=== PATIENT | male | born 1940 | race Caucasian/White ===

== ENCOUNTER → 2017-07-31 | Outpatient (REF) | payer MEDICARE, OTHER ==
[~2017-07-31] MED LIST: ALFU10TA28 PO; ALPR-448 PO; ALPR-460 PO; CHOL10005 PO; CHOL400C PO; DUTA0.5C14 PO; VITA1CAP46 PO
== END ==
LOC: ZZSENDIN 18:00
PROVIDERS: ATTEND Physician Assistant Medical
DX: N39.0 Urinary tract infection, site not specified (principal); R82.99 Other abnormal findings in urine
CPT/HCPCS: 87088

== ENCOUNTER → 2017-09-06 | Outpatient (CLI) | payer MEDICARE, OTHER ==
[~2017-09-06] MED LIST changes: +ALPH200T3 PO; +BILB100C2 PO; +CALC500T6 PO; +FOLI0.4T56 PO; +KRIL1CAP6 PO; +LEVO25PO MC; +MAGN100T PO; +TRAM-420 PO; +UBID30CA27 PO
== END ==
LOC: LAB 09:39
PROVIDERS: ATTEND Urology
DX: Z01.812 Encounter for preprocedural laboratory examination (principal); R33.9 Retention of urine, unspecified; Z87.440 Personal history of urinary (tract) infections; B96.89 Other specified bacterial agents as the cause of diseases classified elsewhere
CPT/HCPCS: 81001; 87088

== ENCOUNTER 2017-09-10 00:22 | Inpatient (IN) | payer MEDICARE, OTHER ==
--- NOTE | 2017-08-30 12:37 | RADIOLOGY IMAGING REPORT ---
FACILITY: [facility] - [place] PATIENT NAME: Zay Fuentes : 1940 MR: [id number] V: [id number] EXAM DATE: ORDERING PHYSICIAN: YADI ARAGON TECHNOLOGIST: Location: [facility] - [place] Patient: Zay Fuentes : 1940 Visit/Account:[id number] Date of Sevice: 08/30/2017 2 VIEWS CHEST INDICATION: Cough. Preop evaluation. COMPARISON: 06/12/2017. FINDINGS: Cardiomediastinal silhouette and pulmonary vessels within normal limits. There is no focal infiltrate or lobar consolidation. There is no pneumothorax or pleural effusion. No nodule. Upper abdomen is unremarkable. No acute bony abnormality. IMPRESSION: 1. No acute cardiopulmonary process. Report Dictated By: Waqas Romo at 08/30/2017 12:15 PM Report E-Signed By: Waqas Romo at 08/30/2017 12:33 PM WSN:[id number]
[2017-09-09 16:01] LABS: INR 1.02
[~2017-09-10] VITALS: Ht 175.3 cm; Wt 59.4 kg
[2017-09-10] VITALS (16 sets, daily range): BP systolic 91–115; BP diastolic 41–68
--- NOTE | 2017-09-10 04:47 | HISTORY AND PHYSICAL ---
DATE OF ADMISSION: September 10, 2017 IDENTIFICATION, CHIEF COMPLAINT The patient is a 76-year-old gentleman with chief complaint of right hip pain. HISTORY OF PRESENT ILLNESS Patient has a longstanding history of arthritis, progressively painful and debilitating, refractory to conservative care. Surgery is indicated to relieve symptoms after failure of nonoperative measures. PAST MEDICAL HISTORY Notable for an irregular heartbeat, sleep apnea, BPH and back problems. PAST SURGICAL HISTORY Notable for urethral dilation and tonsillectomy. CURRENT MEDICATIONS 1. Alfuzosin 10 mg p.o. q.day. 2. Dutasteride 0.5 mg p.o. q.day. 3. Tramadol 50 mg as needed. 4. Various vitamins. ALLERGIES PENICILLIN and AMOXICILLIN, which cause a rash. SULFA DRUGS that causes rash and throat tightness. SOCIAL HISTORY Negative for tobacco use. Drinks alcohol socially, denies abuse. REVIEW OF SYSTEMS Negative. FAMILY HISTORY Negative. PHYSICAL EXAMINATION GENERAL: This is a well-developed, well-nourished male who appears stated age. HEENT: Normocephalic, atraumatic. NECK: Supple. LUNGS: Clear. HEART: Regular. ABDOMEN: Soft. ORTHOPEDIC EXAM: The right hip is stiff at the end range of motion. He has pain with combined flexion and rotation. Skin envelope is intact. Neurovascular function is intact. Motor function is normal. RADIOGRAPHIC DATA Radiographs demonstrate advanced hip arthritis. ASSESSMENT Right hip degenerative joint disease, progressively painful and debilitating, refractory to conservative care. PLAN Per patient request, we are going to proceed with total hip arthroplasty. Nature of this procedure, risks, benefits, the anticipated rehab course are reviewed. Risks include, but are not limited to, , major medical or anesthetic complication, infection, neurovascular injury, blood transfusion, fracture, tendon rupture, leg length discrepancy, persistent or recurrent pain , need for additional operation, and other unforeseen. He understands and wishes to proceed. Signed permit was placed in the chart, no guarantees given or implied. HILDA
[2017-09-10] MEDS ORDERED: NORMOSOL R SOLN(*) 1000 ML BAG 1,000 ML IV PRN ×2 (09:15→12:20)
[2017-09-10] MEDS ORDERED: TRANEXAMIC AC 1000 MG/10ML SDV 1,000 MG in DEXTROSE 5% 50 ML BAG 50 ML IV ONE (09:15)
[2017-09-10] MEDS ORDERED: VANCOMYCIN 1 GM ADDVIAL 1 GM in NS(*) 0.9% 250 ML ADDVAN BAG 250 ML IVPB ONE (09:15)
[2017-09-10] MEDS ORDERED: cloNIDine EPIDUR INJ 100MCG/ML 40 MCG, ROPIVACAINE 0.5% 20 ML VIAL 25 ML, EPINEPHrine H... INJ ONE (09:15)
[2017-09-10] MEDS ORDERED: LIDOCAINE/SOD BICARB 8.4% SYR ID ONE (09:15)
[2017-09-10] MEDS ORDERED: FAMOTIDINE 20 MG TAB PO ONE (09:15)
[2017-09-10] MEDS ORDERED: CLINDAMYCIN(*) 900 MG/NS 50 ML 50 ML IVPB ONE (09:15)
[2017-09-10] MEDS: MIDAZOLAM 2 MG/2 ML VIAL IVP ONE ×2 (09:30→09:47)
[2017-09-10] MEDS ORDERED: LIDOCAINE MPF 1% 5 ML VIAL ONE (09:35)
[2017-09-10] MEDS ORDERED: ONDANSETRON 4 MG/2 ML VIAL ONE (09:35)
[2017-09-10] MEDS ORDERED: PROPOFOL EMUL(*) 10MG/ML 20 ML 40 ML ONE (09:35)
[2017-09-10] MEDS ORDERED: DEXAMETHASONE SOD PHOS 10MG/ML ONE (09:35)
[2017-09-10] MEDS ORDERED: MORPHINE PF 5 MG/10 ML AMP ONE (09:36)
[2017-09-10] MEDS ORDERED: SUCCINYLCHOL CHL 100MG/5ML SYR IVP ONE (10:00)
[2017-09-10] MEDS ORDERED: PHENYLEPHRINE/NS/PF 0.4MG/10ML ONE (11:23)
[2017-09-10] MEDS ORDERED: ACETAMINOPHEN 325 MG TAB PO PRN (12:20)
[2017-09-10] MEDS ORDERED: BISACODYL 10 MG SUPP PR PRN (12:20)
[2017-09-10] MEDS ORDERED: diphenhydrAMINE 25 MG CAP PO PRN (12:20)
[2017-09-10] MEDS ORDERED: MAGNESIUM HYDROXIDE* 30ML UDCP PO PRN (12:20)
[2017-09-10] MEDS ORDERED: diphenhydrAMINE 50 MG/ML VIAL IVP PRN (12:20)
[2017-09-10] MEDS ORDERED: PROMETHAZINE 25 MG/ML 1 ML AMP IVP PRN (12:20)
[2017-09-10] MEDS ORDERED: ZOLPIDEM TARTRATE 5 MG TAB PO PRN (12:20)
[2017-09-10] MEDS ORDERED: BENZOCAINE/MENTHOL 1 EACH LOZG PO PRN (12:20)
[2017-09-10] MEDS ORDERED: DIAZEPAM 5 MG TAB PO PRN (12:20)
[2017-09-10] MEDS ORDERED: FLUSH 10 ML SYR IVP PRN (12:20)
[2017-09-10] MEDS ORDERED: NALOXONE HCL 0.4 MG/ML VIAL IVP PRN (12:30)
[2017-09-10] MEDS ORDERED: ONDANSETRON 4 MG/2 ML VIAL IVP PRN (12:30)
[2017-09-10] MEDS ORDERED: fentaNYL CITR 250 MCG/5 ML AMP ONE (13:01)
--- NOTE | 2017-09-10 13:36 | RADIOLOGY IMAGING REPORT ---
FACILITY: [facility] - [place] PATIENT NAME: Zay Fuentes : 1940 MR: [id number] V: [id number] EXAM DATE: ORDERING PHYSICIAN: YADI ARAGON TECHNOLOGIST: Location: [facility] - [place] Patient: Zay Fuentes : 1940 Visit/Account:[id number] Date of Sevice: 09/10/2017 Exam type: PELVIS History: POST OP HIP PLACEMENT Comparison: None. Findings: There is a right hip arthroplasty that appears in good anatomic alignment on this AP view. Soft tiss ue gas projects over the right hip on this postoperative study. Skin kennedy project lateral to the right hip. Soft tissue gas also noted projecting over the right inguinal region. This could be simp ly postoperative although the differential diagnosis would include a right inguinal hernia. Catheter projects over the midline of the lower pelvis. There are severe arthritic changes of the left hip j oint IMPRESSION: 1. Right hip arthroplasty appears in good anatomic alignment on this AP view Soft tissue gas over the right inguinal region could be simply postoperative in nature although diffe rential diagnosis would include a right inguinal hernia Report Dictated By: Rachel Infante MD at 09/10/2017 1:31 PM Report E-Signed By: Rachel Infante MD at 09/10/2017 1:32 PM WSN:[email or web address]
--- NOTE | 2017-09-10 16:34 | Hospitalist Progress Note ---
Subjective Progress Notes Subjective Patient admitted after right hip replacement. Patient reports he is doing well at this time. Patient's medical history and medications were reviewed. Patient had estimated blood loss of 100cc. Patient had no obvious complications from surgery. Patient Complains of: Cardiovascular: No: Chest Pain Respiratory: No: Shortness of Breath Physical Exam Vital Signs Date Time Temp Pulse Resp B/P (MAP) Pulse Ox O2 Delivery O2 Flow Rate FiO2 09/10/17 15:30 71 12 111/46 (67) 92 Nasal Cannula 1.0 09/10/17 13:57 97.5 Intake and Output 09/11/17 07:00 Intake Total 2450 ml Output Total 1575 ml Balance 875 ml Intake IV Total 2450 ml Output Urine Total 1575 ml Emesis 0 ml # Bowel Movements 0 General Appearance: Alert, Awake, No Acute Distress, Afebrile Cardiovascular: Regular Rate and Rhythm Respiratory: No Respiratory Distress, Clear to Auscultation Extremities: Warm, No Edema Psych: Alert & Oriented X3, Appropriate Mood & Affect Assessment and Plan Problems: (1) Status post hip replacement Status: Acute Assessment & Plan: Patient had no obvious complications from surgery. He will be started on Aspirin 325mg daily for DVT prophylaxis. (2) BPH (benign prostatic hyperplasia) Status: Chronic Assessment & Plan: He is on chronic treatment with alfuzosin and dutasteride. Time Spent on Plan of Care: < 30 min Exam Sepsis Risk: No Definite Risk Problem Qualifiers (1) Status post hip replacement: Laterality: right Qualified Codes: Z96.641 - Presence of right artificial hip joint GERRI LADD Sep 10, 2017 16:34
[2017-09-10] MEDS: IBUPROFEN 800 MG TAB PO SCH (17:47)
--- NOTE | 2017-09-10 19:22 | OPERATIVE REPORT 1 ---
EVENT DATE: September 10, 2017 SURGEON: Roman Remy MD ANESTHESIOLOGIST: Ricky Carmona MD ANESTHESIA: General plus spinal. GREETING CARD MAKER: Durga Hargrove PA-C PREOPERATIVE DIAGNOSIS Right hip degenerative joint disease. POSTOPERATIVE DIAGNOSIS Right hip degenerative joint disease. PROCEDURE PERFORMED Right total hip arthroplasty. ESTIMATED BLOOD LOSS Minimal. DRAINS None. SPECIMENS None. COMPLICATIONS None apparent. IMPLANTS USED [place]oke system Secur-Fit 132 size 9 stem, a 36 mm, +2.5 Biolox head, a 52 mm PSL raised rim shell with an X3 polyethylene liner to accommodate the 36 mm head , zero-degree. INDICATIONS Ed has intractable pain and disability related to end-stage hip arthritis. Surgery is indicated to improve pain and function after failure of nonoperative measures. DESCRIPTION OF PROCEDURE The patient was taken to the operating room and placed supine on the operating table. General anesthesia was induced after a spinal block was administered by the anesthesiologist. Antibiotics and TXA were administered IV. He was placed in the left lateral decubitus on a well-padded pegboard. His pelvis was secured in the vertical position. All bony prominences and superficial nerves were well padded. The right hip, groin, and lower extremity were prepped and draped in the usual sterile fashion for hip surgery. A small incision for posterolateral approach was made and carried down through the skin and subcutaneous tissue to the deep fascia. The fascia was incised over the tip of the trochanter and extended distally in line with the femur and proximally in line with the lb fibers. The lb fibers were split bluntly. The trochanteric bursa was excised. The interval between the abductor and external rotator was identified. The abductor mechanism was protected with a blunt Hohmann. An L capsulotomy/tenotomy was performed with the horizontal limb just above the piriformis. The capsule and external rotators were peeled off the posterior aspect of the femur and tagged with #2 Vicryl for later reattachment. The femoral head was dislocated. A 1.5 cm neck cut was made consistent with preoperative templating, and the femoral head was extracted. The femur was translocated anteriorly. Periacetabular retractors were placed with the tips down in on bone. The labrum was pulled and was excised. A 44 mm reamer was used to medialize to the true medial wall of the acetabulum. It was expanded in 2 mm increments up to 52 where nice rim contact was obtained. The 52 trial had nice fit. The 53 was used to open the mouth of the acetabulum to accommodate the raised rim liner. The surface was copiously lavaged. The actual shell was impacted in approximately 40 degrees of lateral opening and 15 degrees of anteversion using the extracorporeal guide, internal bony landmarks, and transverse acetabular ligament to guide socket placement. Rock solid fixation was achieved. No adjuvant fixation was felt to be needed. The liner was impacted into the shell after this was lavaged and dried. Attention was turned to femoral preparation. Superior neck was resected with a [employer] [place] cutter. A [place] awl found the canal. Tapered reaming was taken up to 9 where good endosteal contact was obtained. Broaching started at 7 and worked up to 9, taking care to lateralize and follow the [place] version of the calcar at about 15 degrees. The 9 broach had nice fit and fill and stability. Trial reduction was performed off this. Good temple of limb length and stability was achievable. The broach was extracted, and the actual stem was impacted. It seated at the same height. The +2.5 seemed optimal for temple of limb length, soft tissue tension, and stability. The Schaffer taper was lavaged and dried, and the actual Biolox head was impacted into position. The joint was reduced. Arthrotomy/tenotomy was closed with drill holes through the posterolateral femur. A pain cocktail was infiltrated throughout the wound. The deep fascia was closed distally with #2 Ethibond and proximally with #2 Vicryl. The subcutaneous tissue was lavaged. Hemostasis was assured. The dermis was closed with 3-0 Vicryl and the skin with surgical kennedy. Xeroform and 4 x 4's dry, sterile dressing and a hip wrap were applied. The patient was rolled supine. An abduction pillow was placed. He was awakened from anesthesia and taken to the recovery room in stable condition having tolerated the procedure well. PLAN The plan is for standard [facility] rehab protocol, weightbearing as tolerated, and posterior precautions. [facility]
[2017-09-10] MEDS ORDERED: VANCOMYCIN ADDVAN 1 GM in NS 250 ML IVPB SCH (22:00)
[2017-09-11] MEDS: IBUPROFEN 800 MG TAB PO SCH ×3 (00:51→17:31)
[2017-09-11 03:56] VITALS: BP 98/47
[2017-09-11] MEDS: CLINDAMYCIN(*) 900 MG/NS 50 ML 50 ML IVPB SCH ×3 (05:27→22:05)
[2017-09-11 07:55] VITALS: BP 91/52
[2017-09-11] MEDS: APAP/HYDROCODONE 325/7.5 TAB PO PRN ×3 (08:04→22:31)
[2017-09-11] MEDS: ASPIRIN 325 MG TAB PO SCH (08:48)
[2017-09-11] MEDS: ALFUZOSIN HCL 10 MG TABCR PO SCH (08:48)
[2017-09-11] MEDS: DUTASTERIDE 0.5 MG CAP PO SCH (08:48)
--- NOTE | 2017-09-11 09:02 | Hospitalist Progress Note ---
Subjective Progress Notes Subjective Patient had no complaints this morning. No acute events overnight. Patient Complains of: Cardiovascular: No: Chest Pain Respiratory: No: Shortness of Breath Physical Exam Vital Signs Date Time Temp Pulse Resp B/P (MAP) Pulse Ox O2 Delivery O2 Flow Rate FiO2 09/11/17 07:59 93 Room Air 09/11/17 07:55 97.8 59 16 91/52 (65) 1.0 General Appearance: Alert, Awake, No Acute Distress, Afebrile Cardiovascular: Regular Rate and Rhythm Respiratory: No Respiratory Distress, Clear to Auscultation Extremities: No Edema Psych: Alert & Oriented X3, Appropriate Mood & Affect Assessment and Plan Problems: (1) Status post hip replacement Status: Acute Assessment & Plan: He will continue Aspirin 325mg daily for 30 days for DVT prophylaxis. (2) BPH (benign prostatic hyperplasia) Status: Chronic Assessment & Plan: He is on chronic treatment with alfuzosin and dutasteride. Exam Sepsis Risk: No Definite Risk Problem Qualifiers (1) Status post hip replacement: Laterality: right Qualified Codes: Z96.641 - Presence of right artificial hip joint GERRI LADDP Sep 11, 2017 09:02
[2017-09-11 12:15] VITALS: BP 91/48
[2017-09-11 12:23] VITALS: Ht 175.3 cm; Wt 59.4 kg
[2017-09-11 17:28] VITALS: BP 86/47
[2017-09-11] MEDS ORDERED: IV BOLUS 500 ML IVSOL IV ONE (17:50)
[2017-09-11] MEDS ORDERED: NS(*) 0.9% 250 ML BAG 250 ML ONE (18:06)
[2017-09-11 20:04] VITALS: BP_SYST 86; BP_SYST 93; BP_DIAS 45; BP_DIAS 47
[2017-09-11] MEDS ORDERED: NS(*) 0.9% 1000 ML BAG 1,000 ML IV PRN (21:20)
[2017-09-11 22:32] VITALS: BP 131/65
[2017-09-12] MEDS: IBUPROFEN 800 MG TAB PO SCH ×2 (00:36→09:24)
[2017-09-12 04:02] VITALS: BP 120/56
[2017-09-12 06:22] LABS: PLATELET COUNT, AUTOMATED 173 K/uL (150-450)
[2017-09-12] MEDS: APAP/HYDROCODONE 325/7.5 TAB PO PRN ×2 (07:21→12:44)
[2017-09-12] MEDS ORDERED: HYDR-4308 PO (07:54)
[2017-09-12 08:08] VITALS: BP 125/72
--- NOTE | 2017-09-12 09:07 | Hospitalist Progress Note ---
Subjective Progress Notes Subjective Patient has no complaints this morning. He states he is ready to go home. Patient Complains of: Cardiovascular: No: Chest Pain Respiratory: No: Shortness of Breath Physical Exam Vital Signs Date Time Temp Pulse Resp B/P (MAP) Pulse Ox O2 Delivery O2 Flow Rate FiO2 09/12/17 08:08 98.3 89 16 125/72 (89) 94 Nasal Cannula 0.5 Intake and Output 09/13/17 07:00 Intake Total 800 ml Balance 800 ml Intake Oral 800 ml General Appearance: Alert, Awake, No Acute Distress, Afebrile Cardiovascular: Regular Rate and Rhythm Respiratory: No Respiratory Distress, Clear to Auscultation Psych: Alert & Oriented X3, Appropriate Mood & Affect Result Diagram: 09/12/17 0602 09/12/17 06 Assessment and Plan Problems: (1) Status post hip replacement Status: Acute Assessment & Plan: He will continue Aspirin 325mg daily for 30 days for DVT prophylaxis. (2) BPH (benign prostatic hyperplasia) Status: Chronic Assessment & Plan: He is on chronic treatment with alfuzosin and dutasteride. Exam Sepsis Risk: No Definite Risk Problem Qualifiers (1) Status post hip replacement: Laterality: right Qualified Codes: Z96.641 - Presence of right artificial hip joint GERRI LADD Sep 12, 2017 09:07
[2017-09-12] MEDS ORDERED: ASPI-757 PO (09:13)
[2017-09-12] MEDS: ASPIRIN 325 MG TAB PO SCH (09:24)
[2017-09-12] MEDS: ALFUZOSIN HCL 10 MG TABCR PO SCH (09:24)
[2017-09-12] MEDS: DUTASTERIDE 0.5 MG CAP PO SCH (09:24)
== END 2017-09-12 13:40 | disposition home or self-care (01) | DRG 470 ==
LOC: OR 00:22 → MED 13:55
PROVIDERS: ADMIT Orthopaedic Surgery; ATTEND Orthopaedic Surgery
PROC: 0SR904A Replacement of Right Hip Joint with Ceramic on Polyethylene Synthetic Substitute, Uncemented, Open Approach (ICD-10-PCS; principal; 2017-09-10 09:51)
DX: M16.11 Unilateral primary osteoarthritis, right hip (principal); N40.0 Benign prostatic hyperplasia without lower urinary tract symptoms; G47.30 Sleep apnea, unspecified; Z88.0 Allergy status to penicillin; Z88.2 Allergy status to sulfonamides
CPT/HCPCS: 36415; 71046; 72170; 82310; 82374; 82435; 82565; 82947; 84132; 84295; 84520; 85025; 85610; 86850; 86900; 86901; 97161; 97165; C1776; J0171; J0330; J0735; J1100; J1885; J2001; J2250; J2270; J2370; J2405; J2704; J2795; J3010; J3370; J3490; J7030; J7050; J7060

== ENCOUNTER 2017-10-22 00:28 | Inpatient (IN) | payer MEDICARE, OTHER ==
[2017-10-21 15:02] LABS: INR 1.02
[2017-10-22] VITALS (13 sets, daily range): BP systolic 90–113; BP diastolic 43–75
[~2017-10-22] VITALS: Ht 177.8 cm; Wt 59.0 kg
[~2017-10-22 00:28] MED LIST changes: +ASPI-757 PO; +HYDR-4308 PO
--- NOTE | 2017-10-22 10:40 | HISTORY AND PHYSICAL ---
DATE OF ADMISSION: October 22, 2017 IDENTIFICATION, CHIEF COMPLAINT Ed is a 76-year-old gentleman with a chief complaint of left hip pain. HISTORY OF PRESENT ILLNESS Patient has a history of arthritis of both of his hips. He is recovering successfully after recent right hip replacement. Left hip replacement is indicated at this time to relieve pain and improve function after failure of nonoperative measures. PAST MEDICAL HISTORY Notable for irregular heartbeat, sleep apnea, benign prostatic hypertrophy, low back problems. PAST SURGICAL HISTORY Notable for the above-noted contralateral hip replacement, tonsillectomy and urethral dilation. ALLERGIES PENICILLIN and AMOXICILLIN, which lead to rash. SULFA, which causes rash and throat tightness, and possibly CLINDAMYCIN, also leading to a rash. FAMILY HISTORY Noncontributory. SOCIAL HISTORY Negative for tobacco use. He drinks alcohol, 2-3 beverages per week, denies abuse. REVIEW OF SYSTEMS Noncontributory. PHYSICAL EXAMINATION GENERAL: This is a well-developed, well-nourished male, who appears his stated age. HEENT: Normocephalic, atraumatic. NECK: Supple. LUNGS: Clear. HEART: Regular. ABDOMEN: Soft. ORTHOPEDIC EXAM: The left hip is painful with limited rotation. His limb is shorter about 1 cm by gross clinical measurement. Skin is intact. Neurovascular function is intact. Hip girdle strength is grossly normal. RADIOGRAPHIC DATA Radiographs demonstrate end-stage DJD of the hip. ASSESSMENT Left hip end-stage degenerative joint disease, progressively painful and debilitating, refractory to conservative care. PLAN Per patient request, will proceed with total hip arthroplasty. Nature of the procedure, risks, benefits, the anticipated rehabilitative course were reviewed. Risks include, but are not limited to, , major medical or anesthetic complication, infection, neurovascular injury, blood transfusion, stiffness, scarring, fracture, tendon rupture, instability, leg length discrepancy, implant loosening, migration or failure, persistent or recurrent pain, need for additional surgery, and other unforeseen. He understands and wishes to proceed. Signed permit was placed in the chart, no guarantees given or implied. [facility]
[2017-10-22] MEDS ORDERED: FAMOTIDINE 20 MG TAB PO ONE (12:15)
[2017-10-22] MEDS ORDERED: LIDOCAINE/SOD BICARB 8.4% SYR ID ONE (12:15)
[2017-10-22] MEDS ORDERED: TRANEXAMIC AC 1000 MG/10ML SDV 1,000 MG in DEXTROSE 5% 50 ML BAG 50 ML IV ONE (12:15)
[2017-10-22] MEDS ORDERED: NORMOSOL R SOLN(*) 1000 ML BAG 1,000 ML IV PRN ×2 (12:15→15:55)
[2017-10-22] MEDS ORDERED: MIDAZOLAM 2 MG/2 ML VIAL IVP PRN (12:15)
[2017-10-22] MEDS ORDERED: VANCOMYCIN 1 GM ADDVIAL 1 GM in NS(*) 0.9% 250 ML ADDVAN BAG 250 ML IVPB ONE (12:15)
[2017-10-22] MEDS ORDERED: cloNIDine EPIDUR INJ 100MCG/ML 40 MCG, ROPIVACAINE 0.5% 20 ML VIAL 25 ML, EPINEPHrine H... INJ ONE (12:15)
[2017-10-22] MEDS ORDERED: DEXAMETHASONE SOD PHOS 10MG/ML ONE (15:01)
[2017-10-22] MEDS ORDERED: PROPOFOL EMUL(*) 10MG/ML 20 ML 40 ML ONE (15:01)
[2017-10-22] MEDS ORDERED: SUCCINYLCHOL CHL 200MG/10ML VL ONE (15:01)
[2017-10-22] MEDS ORDERED: ONDANSETRON 4 MG/2 ML VIAL ONE (15:01)
[2017-10-22] MEDS ORDERED: ePHEDrine 25 MG/5 ML DISP.SYR IVP ONE (15:02)
[2017-10-22] MEDS ORDERED: PHENYLEPHRINE 10 MG/1 ML VIAL ONE (15:02)
--- NOTE | 2017-10-22 15:09 | RADIOLOGY IMAGING REPORT ---
[place] [facility] [place]: Zay Fuentes : 1940 MR: [id number] V: [id number] EXAM DATE: ORDERING PHYSICIAN: YADI ARAGON TECHNOLOGIST: Location: [facility] - [place] Patient: Zay Fuentes : 1940 Visit/Account:[id number] Date of Sevice: 10/22/2017 PELVIS COMPARISONS: None. ADDITIONAL PERTINENT HISTORY: Patient status post left hip arthroplasty. FINDINGS: Osseous structures: Patient status post previous right total hip arthroplasty. Patient status post re cent left hip arthroplasty. No bony fractures. Joint spaces: Components of the hip arthroplasties in good position. Surrounding soft tissues: Lawrence catheter in place. IMPRESSION: 1. Patient status post left hip arthroplasty. 2. No periprocedural complications noted. Report Dictated By: Bautista Dale MD at 10/22/2017 3:03 PM Report E-Signed By: Bautista Dale MD at 10/22/2017 3:04 PM WSN:[id number]
[2017-10-22] MEDS ORDERED: BISACODYL 10 MG SUPP PR PRN (15:55)
[2017-10-22] MEDS ORDERED: FLUSH 10 ML SYR IVP PRN (15:55)
[2017-10-22] MEDS ORDERED: BENZOCAINE/MENTHOL 1 EACH LOZG PO PRN (15:55)
[2017-10-22] MEDS ORDERED: ZOLPIDEM TARTRATE 5 MG TAB PO PRN (15:55)
[2017-10-22] MEDS ORDERED: diphenhydrAMINE 25 MG CAP PO PRN (15:55)
[2017-10-22] MEDS ORDERED: ACETAMINOPHEN 325 MG TAB PO PRN (15:55)
[2017-10-22] MEDS ORDERED: diphenhydrAMINE 50 MG/ML VIAL IVP PRN (15:55)
[2017-10-22] MEDS ORDERED: MAGNESIUM HYDROXIDE* 30ML UDCP PO PRN (15:55)
[2017-10-22] MEDS ORDERED: PROMETHAZINE 25 MG/ML 1 ML AMP IVP PRN (15:55)
--- NOTE | 2017-10-22 16:52 | Hospitalist Progress Note ---
Subjective Progress Notes Subjective Patient seen post-op. Reviewed PMHx (BPH, neurogenic bladder - self cath) and medications. At present he reports doing well. No CP/SOB/N/V. Lawrence cath is in place. Physical Exam Vital Signs Date Time Temp Pulse Resp B/P (MAP) Pulse Ox O2 Delivery O2 Flow Rate FiO2 10/22/17 16:00 97.5 73 14 107/58 (74) 97 Nasal Cannula 1.0 Intake and Output 10/23/17 07:00 Intake Total 2352 ml Output Total 350 ml Balance 2002 ml Intake IV Total 2352 ml Output Urine Total 350 ml General Appearance: Alert, Awake Cardiovascular: Regular Rate and Rhythm Respiratory: Clear to Auscultation GI: Soft and Non-Tender Assessment and Plan Problems: (1) Status post hip replacement Status: Acute Assessment & Plan: He appears to have done well with OR and anesthesia. He did well with his right hip replacement a month ago. He will be on aspirin for DVT prophylaxis. (2) BPH (benign prostatic hyperplasia) Status: Chronic Assessment & Plan: Will continue his Uroxatral and Avodart. He does self cath as well. (3) Urinary retention Status: Chronic Assessment & Plan: Keep Lawrence cath in for now. He will resume self cath soon. Exam Sepsis Risk: No Definite Risk RON CAAL MD Oct 22, 2017 16:52
[2017-10-22] MEDS ORDERED: CELECOXIB 200 MG CAP PO SCH (17:00)
[2017-10-22] MEDS: NS 0.9% IVPB SCH (23:59)
[2017-10-22] MEDS: VANCOMYCIN IVPB SCH (23:59)
[2017-10-23] VITALS (7 sets, daily range): BP systolic 75–100; BP diastolic 48–66; Ht 177.8 cm; Wt 59.0 kg
[2017-10-23] MEDS: DIAZEPAM 5 MG TAB PO PRN (00:02)
[2017-10-23] MEDS: APAP/HYDROCODONE 325/7.5 TAB PO PRN ×3 (00:29→13:55)
--- NOTE | 2017-10-23 06:17 | Hospitalist Progress Note ---
Subjective Progress Notes Subjective BPs have been on low side, but this is similar to his last hospitalization. He denies any dizziness/lightheadedness. No nausea/dyspnea/CP. Physical Exam Vital Signs Date Time Temp Pulse Resp B/P (MAP) Pulse Ox O2 Delivery O2 Flow Rate FiO2 10/23/17 05:53 97/51 (66) 10/23/17 03:23 97.7 79 92 Room Air 10/22/17 22:00 1.0 10/22/17 16:00 14 General Appearance: Alert, Awake Cardiovascular: Regular Rate and Rhythm Respiratory: Clear to Auscultation Assessment and Plan Problems: (1) Status post hip replacement Status: Acute Assessment & Plan: His BPs are on low side, but essentially asymptomatic. This is similar to his right hip replacement a month ago. Continue IV fluids for now. He will be on aspirin for DVT prophylaxis. (2) BPH (benign prostatic hyperplasia) Status: Chronic Assessment & Plan: Will continue his Uroxatral and Avodart. He does self cath as well. (3) Urinary retention Status: Chronic Assessment & Plan: Keep Lawrence cath in for now. He will resume self cath soon. Exam Sepsis Risk: No Definite Risk RON CAAL MD Oct 23, 2017 06:17
[2017-10-23] MEDS: ASPIRIN 325 MG TAB PO SCH (09:28)
[2017-10-23] MEDS: DUTASTERIDE 0.5 MG CAP PO SCH (09:28)
[2017-10-23] MEDS: ALFUZOSIN HCL 10 MG TABCR PO SCH (09:28)
[2017-10-23] MEDS: VANCOMYCIN IVPB SCH (12:38)
[2017-10-23] MEDS: NS 0.9% IVPB SCH (12:38)
--- NOTE | 2017-10-23 18:22 | OPERATIVE REPORT 1 ---
EVENT DATE: October 22, 2017 SURGEON: Roman Remy MD ANESTHESIOLOGIST: Kwesi Mejia MD ANESTHESIA: General plus spinal. CUTTER ALUMINUM SHEET: TENZIN Denson PREOPERATIVE DIAGNOSIS Left hip degenerative joint disease. POSTOPERATIVE DIAGNOSIS Left hip degenerative joint disease. PROCEDURE PERFORMED Left total hip arthroplasty. ESTIMATED BLOOD LOSS Minimal. DRAINS None. SPECIMENS None. COMPLICATIONS None apparent. IMPLANTS USED [place] system with a Secur-Fit size 10, 132-degree stem, a 36 mm Biolox head, standard neck length, a 54 mm Trident PSL BLANCO cluster acetabular shell with a standard zero-degree Trident X3 liner INDICATIONS Ed is a 77-year-old gentleman with intractable pain and disability related to end-stage hip arthritis. Surgery is indicated to relieve symptoms after failure of nonoperative measures. DESCRIPTION OF PROCEDURE Patient was taken to the operating room, placed supine on the operating table. Spinal block was administered by the anesthesiologist. General anesthesia was induced. Antibiotics were administered IV. Patient was positioned in right lateral decubitus on a well-padded pegboard. All bony prominences and superficial nerves were well padded. Left hip girdle and lower extremities were prepped and draped in the usual sterile fashion for hip arthroplasty. A mini incision posterolateral approach was made. Incision was carried down through the skin down to the deep fascia. Fascia was incised over the tip of the trochanter, extended distally in line with the femur, proximally in line with the jeromy fibers. Jeromy fibers were split bluntly. Trochanteric bursa was excised. Interval between the abductor and external rotator was identified, and the abductor mechanism was protected with the blunt clamp. An L capsulotomy/tenotomy was used with the horizontal limb just above the piriformis. Capsule and external rotators were peeled off the posterior femur. These were tagged with #2 Vicryl for later anatomic reattachment. The femoral head was dislocated. End-stage arthritic change was noted. A 1.5 cm neck cut was made consistent with preoperative templating. Femur was translocated anteriorly. Acetabular retractors were placed with the tips down on bone. Pulvinar and labrum were excised. A 44 mm reamer was used to medialize through the true medial wall of the acetabulum. This was expanded in 2 mm increments up to 54 where nice rim contact is obtained. The trial 54 has nice [id number] fit. A 55 was used to open the floor of the acetabulum. The prepared bone was lavaged, and the actual shell was impacted in approximately 45 degrees of lateral opening and 15 to 20 degrees of anteversion using the transverse acetabular ligament, extracorporeal guide, and internal bony landmarks to guide socket placement. Rock-solid fixation was achieved. No adjuvant fixation felt to be needed. The liner was impacted in a cleaned and dried shell. Attention was turned to femoral preparation. The superior neck was resected with a cookie cutter. A Jone awl finds the canal. Tapered reaming was performed up to 10 where nice end-osteal contact is obtained. Broaching starts with 7 and works up to 10, taking care to lateralize and follow the [place] anteversion of the calcar to 12 to 15 degrees anteversion. The 10 stem has nice fit and fill. Trial reduction is performed off this. Good anabaptism of the limb length, soft tissue tension, and stability are achievable. The actual stem is then impacted, and the standard neck length provides optimal anabaptism of limb length, soft tissue tension, and stability. Schaffer was lavaged and dried, and the actual head was impacted onto the Schaffer taper. Joint is reduced. Wound is copiously lavaged. Pain cocktail is infiltrated throughout the wound. The external rotators and the capsule were reattached anatomically to drill holes on the posterolateral femur. The deep fascia was closed with #2 Ethibond, proximally with #2 Vicryl. The subcutaneous tissue was closed with 3-0 Vicryl and the skin with surgical kennedy. Xeroform and 4 x 4's applied in a dry, sterile dressing and a compression wrap. Patient was rolled supine. Abduction pillow was placed. He was awakened from anesthesia and taken to the recovery room stable condition having tolerated the procedure well. Plan is for standard [facility]hab protocol. [facility]
[2017-10-24 00:59] VITALS: BP 118/55
[2017-10-24 07:46] VITALS: BP 121/68
[2017-10-24] MEDS: APAP/HYDROCODONE 325/7.5 TAB PO PRN (08:21)
[2017-10-24] MEDS: DIAZEPAM 5 MG TAB PO PRN (08:21)
[2017-10-24] MEDS: DUTASTERIDE 0.5 MG CAP PO SCH (08:21)
[2017-10-24] MEDS: ALFUZOSIN HCL 10 MG TABCR PO SCH (08:21)
[2017-10-24] MEDS: ASPIRIN 325 MG TAB PO SCH (08:21)
--- NOTE | 2017-10-24 09:12 | Hospitalist Progress Note ---
Subjective Progress Notes Subjective He has no complaints this morning. Patient Complains of: Cardiovascular: No: Chest Pain Respiratory: No: Shortness of Breath Physical Exam Vital Signs Date Time Temp Pulse Resp B/P (MAP) Pulse Ox O2 Delivery O2 Flow Rate FiO2 10/24/17 07:54 92 Nasal Cannula 2.0 10/24/17 07:46 97.8 87 14 121/68 (85) General Appearance: Alert, Awake, No Acute Distress, Afebrile Cardiovascular: Regular Rate and Rhythm Respiratory: No Respiratory Distress, Clear to Auscultation Psych: Alert & Oriented X3, Appropriate Mood & Affect Assessment and Plan Problems: (1) Status post hip replacement Status: Acute Assessment & Plan: His BPs were on the low side, but essentially asymptomatic and now have resolved. This is similar to his right hip replacement a month ago. He will be on aspirin for DVT prophylaxis. (2) BPH (benign prostatic hyperplasia) Status: Chronic Assessment & Plan: Will continue his Uroxatral and Avodart. He does self cath as well. (3) Urinary retention Status: Chronic Assessment & Plan: He will self cath at home if needed. Exam Sepsis Risk: No Definite Risk GERRI LADD SCREEN MAKING SUPERVISOR Oct 24, 2017 09:12
[2017-10-24] MEDS ORDERED: HYDR-4308 PO (09:15)
== END 2017-10-24 13:07 | disposition home or self-care (01) | DRG 470 ==
LOC: OR 00:28 → MED 16:00
PROVIDERS: ADMIT Orthopaedic Surgery; ATTEND Orthopaedic Surgery
PROC: 0SRB04A Replacement of Left Hip Joint with Ceramic on Polyethylene Synthetic Substitute, Uncemented, Open Approach (ICD-10-PCS; principal; 2017-10-22 13:15)
DX: M16.12 Unilateral primary osteoarthritis, left hip (principal); M25.552 Pain in left hip; G47.30 Sleep apnea, unspecified; I49.9 Cardiac arrhythmia, unspecified; M54.5 Low back pain; N40.0 Benign prostatic hyperplasia without lower urinary tract symptoms; N31.9 Neuromuscular dysfunction of bladder, unspecified; R03.1 Nonspecific low blood-pressure reading; Z96.641 Presence of right artificial hip joint; Z96.651 Presence of right artificial knee joint; Z88.0 Allergy status to penicillin; Z88.2 Allergy status to sulfonamides; Z88.1 Allergy status to other antibiotic agents; Z90.89 Acquired absence of other organs; Z96.0 Presence of urogenital implants
CPT/HCPCS: 36415; 72170; 85610; 86850; 86900; 86901; 97161; 97165; C1776; J0171; J0330; J0735; J1100; J1885; J2250; J2370; J2405; J2704; J2795; J3370; J7050; J7060

== ENCOUNTER 2018-04-18 18:46 | Emergency (ER) | payer MEDICARE, OTHER ==
[2017-10-23 13:17] VITALS: Wt 68.0 kg
[2018-04-18 18:49] VITALS: BP 116/71
--- NOTE | 2018-04-18 19:03 | ER Report ---
History and Physical Time Seen By MD: 19:03 Hx. of Stated Complaint: Patient states his cat bit left thumb about 20 mintues prior to arriving at ER HPI/ROS CHIEF COMPLAINT: cat bite HISTORY OF PRESENT ILLNESS: This is a 77 year old male. He had a cat bite to his left thumb tonight. His cat was sitting on his lap chewing on a hoodie string and he tried to get it out of the cat's mouth and then was bitten. Cat is an indoor cat, healthy and up to date on vaccines and health. He washed the wound with soap and water and applied some betadyne. He has two hip replacements so is concerned about infection. Allergies: Coded Allergies: Sulfa (Sulfonamide Antibiotics) (Verified Allergy, Severe, AIRWAY OBSTRUCTION, 04/18/18) Penicillins (Verified Allergy, Intermediate, HIVES, SYNCOPE, 04/18/18) amoxicillin (Verified Allergy, Intermediate, RASH , 04/18/18) clindamycin (Verified Allergy, Intermediate, RASH THROUGHOUT BODY, 04/18/18) Home Meds Active Scripts Doxycycline Hyclate (DOXYCYCLINE HYCLATE) 100 Mg Tablet, 100 MG PO BID, #14 TAB 0 Refills Prov:ARIANA TAVERA MD 04/18/18 Metronidazole (METRONIDAZOLE) 500 Mg Tablet, 500 MG PO TID, #21 TAB Prov:ARIANA TAVERA MD 04/18/18 Reported Medications Dutasteride (AVODART) 0.5 Mg Capsule, 1 CAP PO QDAY, CAPSULE 01/21/15 Alfuzosin Hcl (UROXATRAL) 10 Mg Tabcr, 1 TAB PO QDAY 01/21/15 Discontinued Reported Medications Hydrocodone Bit/Acetaminophen (NORCO 7.5-325 TABLET) 1 Each Tablet, 1-2 EACH PO Q4-6H PRN for PAIN, #60 10/24/17 Folic Acid (FOLIC ACID) 0.4 Mg Tablet, 1 TAB PO QDAY 09/04/17 Krill/Om3/Dha/Epa/Om6/Lip/Astx (KRILL OIL 1,000 MG SOFTGEL) 1 Each Capsule, 1 EACH PO QDAY, CAPSULE 09/04/17 Magnesium Amino Acid Chelate (MAGNESIUM) 100 Mg Tablet, 100-200 MG PO QHS PRN for MUSCLE SPASMS 09/04/17 Discontinued Scripts Aspirin (ASPIRIN) 325 Mg Tablet, 325 MG PO QDAY, #30 TAB Prov:GERRI LADD DOUGHNUT FRYER 09/12/17 Reviewed Nurses Notes: Yes Hx Smoking: No Smoking Status: Never Smoker Hx Substance Use Disorder: No Hx Alcohol Use: Yes Constitutional Vital Sign - Last 24 Hours 04/18/18 18:49 Temp 97.9 Pulse 66 Resp 15 B/P (MAP) 116/71 Pulse Ox 90 O2 Delivery Room Air Physical Exam General: Alert, no acute distress. Skin: Two small punctures on the left thumb, cleaned with betadyne ointment on skin. Cardiovascular: Normal cap refill Medical Decision Making ED Course/Re-evaluation ED Course discussed with patient. Based on his allergies, looked up current antibiotic regimens that are recommended and will give Doxycycline and Metronidazole. Decision to Disposition Date: Apr 18, 2018 Decision to Disposition Time: 19:18 Depart Departure Latest Vital Signs Vital Signs Date Time Temp Pulse Resp B/P (MAP) Pulse Ox O2 Delivery O2 Flow Rate FiO2 04/18/18 18:49 97.9 66 15 116/71 90 Room Air Impression: Primary Impression: Cat bite of finger Condition: Improved Disposition: HOME OR SELF-CARE Referrals: KARTHIK MARTE MD (PCP) New Scripts Doxycycline Hyclate (DOXYCYCLINE HYCLATE) 100 Mg Tablet 100 MG PO BID, #14 TAB 0 Refills Prov: ARIANA TAVERA MD 04/18/18 Metronidazole (METRONIDAZOLE) 500 Mg Tablet 500 MG PO TID, #21 TAB Prov: ARIANA TAVERA MD 04/18/18 Patient Instructions: Animal Bite (ED) Additional Instructions: Wash the wound twice a day with soap and water. Take the following antibiotics: Metronidazole 500mg three times a day for 7 days. Doxycycline 100mg twice a day for 7 days. Problem Qualifiers Primary Impression: Cat bite of finger Encounter type: initial encounter Qualified Codes: S61.259A - Open bite of unspecified finger without damage to nail, initial encounter; W55.01XA - Bitten by cat, initial encounter ARIANA TAVERA MD Apr 18, 2018 19:03
[2018-04-18] MEDS ORDERED: METR-160 PO (19:20)
[2018-04-18] MEDS ORDERED: DOXYCYCLINE HYCL 100 MG TAB PO ONE (19:20)
[2018-04-18] MEDS ORDERED: DOXY-179 PO (19:20)
[2018-04-18] MEDS ORDERED: METRONIDAZOLE 500 MG TABLET PO ONE (19:20)
== END 2018-04-18 19:45 | disposition home or self-care (01) ==
LOC: ER 19:11
DX: S61.052A Open bite of left thumb without damage to nail, initial encounter (principal); W55.01XA Bitten by cat, initial encounter
CPT/HCPCS: 99283; A9270

== ENCOUNTER → 2018-08-25 | Outpatient (CLI) | payer MEDICARE, OTHER ==
[2017-10-23 13:17] VITALS: BMI 18.6
[~2018-08-25] MED LIST changes: +DOXY-179 PO; -HYDR-4308 PO; +HYDR-654 PO; +METR500T15 PO
--- NOTE | 2018-08-25 11:43 | RADIOLOGY IMAGING REPORT ---
FACILITY: [facility] PATIENT NAME: Zay Fuentes : 1940 MR: [id number] V: [id number] EXAM DATE: ORDERING PHYSICIAN: BRENDA CHRISTIAN TECHNOLOGIST: Location: [facility] Patient: Zay Fuentes : 1940 Visit/Account:[id number] Date of Sevice: 08/25/2018 KIDNEYS INDICATION: Chronic urinary retention COMPARISON: October 09, 2016 FINDINGS: The right kidney measures 9.7 x 5.3 x 5.4 cm. The left kidney measures 8.9 x 4.7 x 4.6 cm. The partially imaged IVC is normal. The partially imaged aorta is slightly ectatic measuring 2.4 cm. A few right renal cysts are present the largest measuring 2.8 cm similar to prior. Echogenic calcifi cations noted along the wall of the dominant right renal cyst similar to prior. Multiple left renal cysts the largest measuring 6.8 cm similar to prior. Otherwise normal kidneys without hydronephrosis. Echogenic debris noted within the bladder. The bladder is otherwise normal. Post void bladder volume measured 4.5 mL. IMPRESSION: 1. Bilateral renal cysts similar to prior. One of the right renal cysts contains unchanged punctate wall calcifications in keeping with a complicated benign cyst. 2. Echogenic debris within the bladder may reflect proteinaceous or hemorrhagic debris. Correlate w ith urinalysis. 3. Otherwise normal renal ultrasound. Report Dictated By: Yogi Bermudez MD at 08/25/2018 11:27 AM Report E-Signed By: Yogi Bermudez MD at 08/25/2018 11:38 AM WSN:[email or web address]
== END ==
LOC: US 02:41
PROVIDERS: ATTEND Urology
DX: N28.1 Cyst of kidney, acquired (principal)
CPT/HCPCS: 76705

== ENCOUNTER 2018-09-29 02:42 | Observation (INO) | payer MEDICARE, OTHER ==
--- NOTE | 2018-09-26 14:59 | HISTORY AND PHYSICAL ---
DATE OF ADMISSION: September 29, 2018 CHIEF COMPLAINT Incomplete bladder emptying with history of BPH. HISTORY OF PRESENT ILLNESS Patient is a 78-year-old white male with a long history of BPH, who is status post a transurethral microwave thermal therapy in 2004, who was noted to have symptomatic improvement for a few years, and then, however, he slowly had return of symptoms and has been on Avodart and Uroxatral since that time. At his original presentation back in 2004, he had a residual greater than 1000 mL, and post procedure, this has been down to the 200 to 300 range with normal creatinines. However, the patient experienced a urinary tract infection in September 2016 and at that time was having residuals of greater than 500 mL. He was started on a CIC routine and has been getting approximately 500 mL out each evening and before bed. His last creatinine was 1.1 and a PSA of 0.4 in July of this year. Patient had a transrectal ultrasound performed on the 20 of August which revealed an 18 cc volume prostate. This was followed by an office flexible cystoscopy one week later, which showed no urethral strictures. He had some mild obstructing lateral lobes. Upon entering his bladder, it was 2+ trabeculated. He was noted to have two spheroid stones in the bladder, each measuring approximately 15 mm. There were no bladder tumors or other lesions. These findings were discussed with the patient, and he was informed that we have recommended these stones be removed. Given their size, a transurethral laser procedure should provide a good result. I have also discussed with him the possibility of performing a transurethral resection of his prostate in an attempt to have him empty more efficiently. Also discussed we have not performed a pressure flow rate or other urodynamic tests to evaluate his detrusor contractibility state. Even if this was less than suboptimal, he still might benefit from a transurethral procedure, but its main usefulness would be in providing some predicted value for success of the procedure. The patient does report some relatively normal voiding during the day when his bladder is significantly full at greater than 500 mL. He denies significant Valsalva-type maneuvers. He is, therefore, now being brought to the operating room for planned anesthetic cystoscopy, laser fragmentation and removal of stones, and possible laser photovaporization of prostate. Risks of bleeding, infection, scar tissue including bladder neck contracture, postoperative incontinence, impotence, retrograde ejaculation, and failure to adequately empty bladder requiring continued catheterization have all been extensively discussed. PAST MEDICAL HISTORY 1. Migraine headaches. 2. Obstructive sleep apnea. 3. Gallstones. 4. Degenerative joint disease. 5. Impotence. 6. BPH. 7. Right complex renal cyst, Bosniak type II. PAST SURGICAL HISTORY 1. Tonsillectomy. 2. Transurethral microwave thermal therapy 2004. 3. Bilateral hip replacement 2018. MEDICINES 1. Uroxatral. 2. Avodart. 3. Multivitamins. ALLERGIES PENICILLIN, SULFA, AMOXICILLIN, and CLINDAMYCIN. FAMILY HISTORY Noncontributory. SOCIAL HISTORY Patient is , lives in [place], [place]. 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 REVIEW OF SYSTEMS Patient denies chest pain, shortness of breath, productive cough, fever, chills, gross hematuria, flank pain, bleeding disorder, or liver disease. PHYSICAL EXAMINATION GENERAL: Patient is a well-developed, well-nourished white male in no acute distress. HEENT: Normocephalic, atraumatic. CHEST: Clear to auscultation bilaterally. CARDIOVASCULAR: Regular rate and rhythm. ABDOMEN: Soft, nontender. No masses are palpated. GENITOURINARY: Deferred to the OR. EXTREMITIES: Without clubbing, cyanosis, or edema. NEUROLOGIC: Nonfocal. IMPRESSION A 78-year-old white male with a long history of elevated postvoid residuals and benign prostatic hypertrophy, who recently noted to have a urinary tract infection and found to have two 15 mm bladder stones. 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 This has not been officially addressed with urodynamic studies, although they have been offered to the patient. PLAN We will perform anesthetic cystoscopy with laser fragmentation and removal of his bladder stones, followed by transurethral photovaporization of prostate. [facility] HOSPITALAvis
[~2018-09-29] VITALS: Ht 177.8 cm; Wt 70.3 kg
[2018-09-29] VITALS (17 sets, daily range): BP systolic 91–133; BP diastolic 44–77
[2018-09-29] MEDS ORDERED: FAMOTIDINE 20 MG TAB PO ONE (07:45)
[2018-09-29] MEDS ORDERED: MIDAZOLAM 2 MG/2 ML VIAL IVP PRN (07:45)
[2018-09-29] MEDS ORDERED: LIDOCAINE/SOD BICARB 8.4% SYR ID ONE (07:45)
[2018-09-29] MEDS ORDERED: NORMOSOL R SOLN(*) 1000 ML BAG 1,000 ML IV PRN (07:45)
[2018-09-29] MEDS ORDERED: GENTAMICIN(*) 80 MG/2 ML VIAL 60 MG in NS 0.9% IRRIGATION 500 ML PLCT 500 ML IR ONE (07:45)
[2018-09-29] MEDS ORDERED: LEVOFLOXACIN/D5W*500 MG/100 ML 100 ML IVPB ONE (07:45)
[2018-09-29] MEDS ORDERED: PROPOFOL EMUL(*) 10MG/ML 20 ML 20 ML ONE (09:40)
[2018-09-29] MEDS ORDERED: LIDOCAINE MPF 1% 5 ML VIAL ONE (09:40)
[2018-09-29] MEDS ORDERED: ONDANSETRON 4 MG/2 ML VIAL ONE (09:40)
[2018-09-29] MEDS ORDERED: DEXAMETHASONE SOD 4 MG/ML VIAL ONE (09:40)
[2018-09-29] MEDS ORDERED: fentaNYL CITR 100 MCG/2 ML AMP ONE ×2 (09:46→13:19)
[2018-09-29] MEDS ORDERED: BELLADONNA ALK/OPIUM 60MG SUPP PR ONE (10:25)
--- NOTE | 2018-09-29 13:39 | OPERATIVE REPORT 1 ---
EVENT DATE: September 29, 2018 SURGEON: Arjun Cool MD ANESTHESIOLOGIST: Lamont Alvarez MD. ANESTHESIA: General anesthetic. PREOPERATIVE DIAGNOSIS 1. Bladder calculi times 2 measuring approximately 1.5 cm x 1 cm each. 2. Chronic urinary retention with benign prostatic hyperplasia. POSTOPERATIVE DIAGNOSIS 1. Bladder calculi times 2 measuring approximately 1.5 cm x 1 cm each. 2. Chronic urinary retention with benign prostatic hyperplasia. PROCEDURE PERFORMED 1. Anesthetic cystoscopy with Holmium laser fragmentation of bladder calculi times 2 with evacuation of fragments. 2. Photovaporization of prostate using the Cyber TM Thulium laser. ESTIMATED BLOOD LOSS 10 cc. IV FLUIDS Crystalloids. DRAINS 22-Mauritanian 3-way Lawrence catheter. PATHOLOGY Bladder stone fragments for permanent analysis. COMPLICATIONS None. CONDITION The patient was taken to the recovery room awake and in stable condition. STATEMENT OF MEDICAL NECESSITY The patient is a 78-year-old white male with a long history of BPH who over the past several years has been noted to have increasing post-void residuals. He has been on Avodart and Uroxatral for several years without significant improvement in his residuals. He had a urinary tract infection approximately a year and a half ago and in his last cystoscopic exam, he was noted to have two dependent bladder stones, each measuring approximately 1.5 cm. His upper tracts were normal. His prostatic volume was approximately 20 cc by ultrasound exam. Options of urodynamics with pressure Lawrence test were discussed with the patient vs. proceeding with removal of bladder stones followed by transurethral resection and photovaporization of prostate. The patient has elected to undergo definitive treatment at this time. He was give approximately 50 to 80% chance of spontaneously voiding to completion following the procedure with an status of his current detrusor contractility. The risk of bleeding, infection, impotence and incontinence were also explained as well as recurrence of bladder stones. DESCRIPTION OF PROCEDURE The patient was brought to the operating room. After general anesthetic was obtained, he was placed in the dorsal lithotomy position and prepped and draped in the usual sterile manner. Anesthetic cystoscopy was performed with the 21- Mauritanian rigid Juan sheath after the urethra was sounded to a 30-Mauritanian. He had a normal appearing urethra in the pendulous bulbar and membranous aspects. His bladder neck was mildly elevated from obstructing lateral lobes. Upon entering his bladder, his bladder was 2+ trabeculated. The two stones were noted in the dependent portion of the bladder. There were no other lesions or stones identified. The ureteral orifices were normal in appearance and both effluxing clear urine and were well off the bladder neck. At this point, the Holmium laser fiber was entered into the working channel of the scope sheath and Holmium laser fragmentation of the bladder stones were performed. The stones were laminar in makeup and fragmented relatively easily. Following fragmentation of the stones to multiple small parts, we removed the vast majority of these fragments. They were then sent for permanent analysis to pathology. At this point, the scope was then reintroduced. He was noted to have 10 to 20 smaller remaining fragments and small cellules throughout the bladder floor. These were individually grasped with the rigid grasping forceps and removed. Following treatment of the stones with the Holmium laser, the scope was removed and was replaced with the Olympus continuous sheath laser scope. The Unisense Fertili[employer] TM laser fiber was introduced into the working channel of the scope. Power was set at 60 [place]. First, the ureteral orifices were identified and this area just inferior to the bladder neck was marked at both the 5 and 7 o'clock positions. The distal aspect of photovaporization just proximal to the veru was also marked in 5 and 7 o'clock positions. Photovaporization was then performed from the bladder neck down to the previously marked distal aspect of resection, just proximal to the veru on the 5 o'clock position. This was then done on the lateral lobe on the patient's left side from the 5 to 1 o'clock position. Following this, photovaporization of the right lateral lobe was performed in a similar manner. The floor was next addressed, followed by the anterior tissue. Throughout the photovaporization, the distal aspect was referenced to insure treatment did not proceed beyond this area. Pulse time of 27 minutes of vaporization were performed. At the conclusion of this, the patient had a wide open prostatic urethra. There was no evidence of perforation or significant bleeding. At this point, the scope sheath was removed. A 22-Mauritanian 3-way Lawrence catheter was placed with 30 cc in the balloon. This was placed on a continuous bladder irrigation with normal saline. B and O suppository was given per rectum at the conclusion of the case after hydrocortisone cream was placed along the meatus. The patient was awakened in the operating room and take to the recovery area in stable condition. The plan will be to keep the patient overnight for 23-hour observation with having discharged home in the morning. We will plan to keep his catheter in place approximately 1 to 2 weeks given his history of chronic retention and possible need for self-cath. HILDA
[2018-09-29] MEDS ORDERED: PHENAZOPYRIDINE 200 MG TAB PO PRN (14:40)
[2018-09-29] MEDS ORDERED: MAG HYD/AL HYD/SIMETH 30ML UDC PO PRN (14:40)
[2018-09-29] MEDS ORDERED: OXYBUTYNIN CHL XL 5 MG TABCR PO PRN (14:40)
[2018-09-29 14:45] LABS: PLATELET COUNT, AUTOMATED 210 K/uL (150-450)
[2018-09-29] MEDS ORDERED: ZOLPIDEM TARTRATE 5 MG TAB PO PRN (14:45)
[2018-09-29] MEDS ORDERED: APAP/HYDROCODONE 325/5 TAB PO PRN (14:45)
[2018-09-29] MEDS ORDERED: BELLADONNA ALK/OPIUM 60MG SUPP PR PRN ×2 (14:45→17:15)
[2018-09-29] MEDS ORDERED: FLUSH 10 ML SYR IVP PRN (14:45)
[2018-09-29] MEDS: NS 0.9% 3000 ML IRRIGATION BAG 3,000 ML IR PRN ×3 (14:55→20:18)
[2018-09-29] MEDS: NS(*) 0.9% 1000 ML BAG 1,000 ML IV PRN (14:56)
[2018-09-29] MEDS: KETOROLAC 15 MG/ML VIAL IVP SCH ×2 (17:13→23:18)
[2018-09-29] MEDS: DOCUSATE SODIUM 100 MG CAP PO SCH (20:32)
[2018-09-30 03:00] VITALS: BP 96/50
[2018-09-30] MEDS: NS 0.9% 3000 ML IRRIGATION BAG 3,000 ML IR PRN ×2 (03:04→05:30)
[2018-09-30] MEDS: NS(*) 0.9% 1000 ML BAG 1,000 ML IV PRN (03:45)
[2018-09-30] MEDS: KETOROLAC 15 MG/ML VIAL IVP SCH ×2 (05:21→12:00)
[2018-09-30 07:13] VITALS: BP 96/46
[2018-09-30] MEDS ORDERED: ALFUZOSIN HCL 10 MG TABCR PO SCH (09:00)
[2018-09-30] MEDS ORDERED: DUTASTERIDE 0.5 MG CAP PO SCH (09:00)
[2018-09-30] MEDS: DOCUSATE SODIUM 100 MG CAP PO SCH (09:07)
[2018-09-30 09:15] VITALS: Ht 177.8 cm; Wt 70.3 kg
[2018-09-30] MEDS ORDERED: HYDR-653 PO (09:47)
[2018-09-30] MEDS ORDERED: DOCU-416 PO (09:48)
[2018-09-30] MEDS ORDERED: OXYB10TA21 PO (09:51)
[2018-09-30] MEDS ORDERED: NITR-105 PO (09:53)
[2018-09-30] MEDS ORDERED: LEVOFLOXACIN 500 MG TAB PO SCH (10:00)
[2018-09-30] MEDS ORDERED: INFLUENZA VIRUS VAC 0.5ML SYR IM ONLY ONE (12:21)
== END 2018-09-30 12:01 | disposition home or self-care (01) ==
LOC: OR 02:42 → MED 14:10
PROVIDERS: ADMIT Urology; ATTEND Urology
DX: N21.0 Calculus in bladder (principal); Z23 Encounter for immunization; R33.9 Retention of urine, unspecified; N40.0 Benign prostatic hyperplasia without lower urinary tract symptoms
CPT/HCPCS: 36415; 52317; 52648; 81001; 82365; 84153; 85025; 87088; 88300; A9270; G0378; J1100; J1885; J1956; J2001; J2250; J2405; J2704; J3010; J7030; Q2037; 82040; 82247; 82310; 82374; 82435; 82565; 82947; 84075; 84132; 84155; 84295; 84450; 84460; 84520; 90674